=== PATIENT | female | born 1945 | race African-American/Black ===

== ENCOUNTER → 2016-09-03 | Outpatient (CLI) | payer OTHER ==
[~2016-09-03] MED LIST: CADUET 10 MG-41 EACH PO; CENTRUM SILVER1 EAC1 PO; GLIPIZIDE 5 MG T5 MG PO; LISINOPRIL20 MG PO; LORTAB 5 MG/5001 TA1 PO; OMEPRAZOLE OR
== END ==
LOC: RAD 03:05
DX: Z12.31 Encounter for screening mammogram for malignant neoplasm of breast (principal)

== ENCOUNTER → 2017-08-12 | Outpatient (CLI) | payer OTHER ==
[~2017-08-12] VITALS: Ht 157.5 cm; Wt 77.1 kg
[~2017-08-12] MED LIST changes: +ACTOS 30 MG TAB30 M2 PO; +AMLODIPINE BESY10 MG PO; +LIPITOR80 MG PO; +METFORMIN HCL1000 MG PO; +XALATAN2.5 ML OPHTHALMIC
--- NOTE | ~2017-08-12 | S ---
[facility] [place] [address] SURGICAL PATH RPT PROCEDURE Name: ADA HOANG Room #: REG [facility].Deanna.#: [id number] Admission: 08/12/17 Date of : 49 Discharge: Report #: [id number] Path Case #: [id number] PATHOLOGY REPORT COLLECTION DATE: 08/12/2017 RECEIVED DATE: 08/12/2017 SUBMITTING PHYS: Dr. Phill Chase OTHER PHYS: Dr. Navi Greene SPECIMEN(S) RECEIVED: A.Colon polyp at 40 cm B.Rectal polyp * * * * * * * * * * * * FINAL DIAGNOSIS: A. "Colon polyp at 40 cm", biopsy: - Tubular adenoma; no high-grade dysplasia. B. "Rectal polyp", biopsy: - Tubular adenoma; no high-grade dysplasia. (CLW:[facility]; 08/13/2017) PATHOLOGIST: Nataly Dang M.D. REPORT ELECTRONICALLY SIGNED BY: Nataly Dang M.D. DATE/TIME: 08/13/2017 15:09 * * * * * * * * * * * * GROSS PATHOLOGY: A. The specimen is received in formalin, labeled "WhiteAda and polyp at 40 cm", are three hernandez soft tissues 0.2 cm, 0.3 cm and is 0.4 cm in greatest dimension, entirely submitted in A1. B. The specimen is received in formalin, labeled "White, Ada Wang and rectal polyp", is a hernandez-brown rubbery pedunculated polyp measuring 0.3 x 0.2 cm (Stalk) and 0.6 x 0.4 x 0.2 cm (head). Margin inked black bisected and entirely submitted in B1. ([facility]; 08/12/2017) CLINICAL HISTORY: High risk screening, history of polyps, colon polyp, diverticulosis, rectal polyp INITIAL CPT CODE(S): A; 29948 B; 87409 Professional services performed by [facility] at [address] [address] SURGICAL PATH RPT PROCEDURE Name: ADA HOANG Room #: REG Radha Landry.#: [id number] Admission: 08/12/17 Date of : 49 Discharge: Report #: [id number] Path Case #: [id number] [address] [facility] , [place] [address] [email or web address] at [address] [place] [address], [facility] [address] [address]. [facility] [address] [place] [address] PHONE: [phone] DIRECTOR: Mario Vidal M.D. * * * END OF REPORT * * *
--- NOTE | ~2017-08-12 | P ---
[facility] [place] [address] PROCEDURE REPORT Name: BRYAN HOANG Room #: REG [facility].#: [id number] Admission: 08/12/17 Attend Phys: Phill Chase MD Discharge: Date of : 49 Report #: [id number] THIS REPORT FOR: //name// CC: Phill Greene MD DATE OF SERVICE: 08/12/2017 BRIEF HISTORY: The patient is a 72-year-old woman with a prior history of colon polyps, for high risk screening colonoscopy. PREOPERATIVE DIAGNOSIS: High risk screening colonoscopy. POSTOPERATIVE DIAGNOSES: 1. Diminutive polyp at 40 cm. 2. Rectal polyp. 3. Moderate diverticulosis coli. 4. Small internal hemorrhoids. MEDICATIONS: Deep sedation with propofol per Anesthesia. SPECIMEN: 1. Polyp from 40 cm. 2. Rectal polyp. ESTIMATED BLOOD LOSS: 3 mL. PROCEDURE: Colonoscopy to cecum and terminal ileum with snare polypectomy and biopsy findings. DESCRIPTION OF PROCEDURE: Prior to propofol sedation, the procedure of colonoscopy discussed with the patient as well as potential risks and its complications. She indicates she understands and desires to proceed. With the patient in left lateral decubitus position, digital examination was completed, which revealed no abnormalities. Subsequently, B-152 video colonoscope was introduced in the rectum, advanced under direct vision to the cecum. Done with minimal difficulty. Cecum was identified by the ileocecal valve and appendiceal orifice. I was able to visualize the distal segment of the terminal ileum, which was inspected and noted to be unremarkable. At that point, the scope was slowly withdrawn and careful circumferential views were obtained including retroflexing the scope in the ascending colon. Upon slow withdrawal of the scope, the prep was noted to be good. The mucosa was within normal limits, normal vascular pattern, normal light reflex. As we withdrew the scope, an occasional diverticulum was seen in the proximal colon. No further [facility] [address] [place] [address] PROCEDURE REPORT Name: BRYAN HOANG WALE Room #: REG [facility].#: [id number] Admission: 08/12/17 Attend Phys: Phill Chase MD Discharge: Date of : 49 Report #: [id number] abnormalities were noted until the sigmoid colon was reached at which point she was noted to have moderately severe diverticular disease without endoscopic evidence of diverticulitis. At 40 cm, a 4 mm polyp was seen and removed with multiple biopsies. Scope was further withdrawn and diverticular disease was again seen. Scope was withdrawn in the rectum. In the very distal rectum, a 6 mm sessile polyp on a narrow base was seen and removed by cold snare polypectomy and recovered. The scope was withdrawn. The patient tolerated the procedure well. CONDITION OF THE PATIENT UPON DISCHARGE: Following the procedure, the patient was drowsy, arousable and conversant and will be discharged home when fully ambulatory. INSTRUCTIONS TO THE PATIENT AND FAMILY AT THE TIME OF DISCHARGE: We will follow up on the path of the polyps. If one or both the polyps are adenomas, she is to return in 5 years, if neither one is adenomas, then 10 years would be indicated. I also suggest high fiber diet for diverticular disease. She will otherwise return to care of Dr. Navi Greene. Her last colonoscopy was in 2004. Withdrawal time from cecum was 15 minutes 55 seconds. By: 1028 1212 Phill Chase MD /nt
== END | disposition home or self-care (01) ==
LOC: GI 08:36
DX: Z09 Encounter for follow-up examination after completed treatment for conditions other than malignant neoplasm (principal); Z86.010 Personal history of colon polyps; K57.30 Diverticulosis of large intestine without perforation or abscess without bleeding; K64.8 Other hemorrhoids; D12.5 Benign neoplasm of sigmoid colon; D12.8 Benign neoplasm of rectum; Z87.891 Personal history of nicotine dependence; I10 Essential (primary) hypertension; E78.5 Hyperlipidemia, unspecified; K21.9 Gastro-esophageal reflux disease without esophagitis; Z90.710 Acquired absence of both cervix and uterus; Z98.890 Other specified postprocedural states
CPT/HCPCS: 62110; 62900

== ENCOUNTER → 2017-09-06 | Outpatient (CLI) | payer OTHER | LOC: RAD 09-03 09:56 | DX: Z12.31 Encounter for screening mammogram for malignant neoplasm of breast (principal); M85.89 Other specified disorders of bone density and structure, multiple sites; Z78.0 Asymptomatic menopausal state ==

== ENCOUNTER → 2018-09-06 | Outpatient (CLI) | payer OTHER | LOC: RAD 13:08 | DX: Z12.31 Encounter for screening mammogram for malignant neoplasm of breast (principal) ==

== ENCOUNTER → 2019-10-02 | Outpatient (CLI) | payer OTHER | LOC: RAD 10:51 | PROVIDERS: ATTEND Neuromusculoskeletal Medicine & OMM | DX: Z12.31 Encounter for screening mammogram for malignant neoplasm of breast (principal) ==

== ENCOUNTER → 2020-10-21 | Outpatient (CLI) | payer OTHER | LOC: RAD 13:13 | PROVIDERS: ATTEND Neuromusculoskeletal Medicine & OMM | DX: Z12.31 Encounter for screening mammogram for malignant neoplasm of breast (principal) ==